=== PATIENT | female | born 1990 | race Caucasian/White ===

== ENCOUNTER 2022-07-19 23:38 | Emergency (ER) | payer MEDICARE ==
[~2022-07-19] VITALS: Ht 170.2 cm; Wt 61.8 kg
[2022-07-19 23:53] VITALS: BP 128/82
[2022-07-20] MEDS ORDERED: IBUP-2029 MT (01:05)
[2022-07-20] MEDS ORDERED: TRAM50TA3 MT (01:05)
== END 2022-07-20 01:31 | disposition home or self-care (01) ==
LOC: ER 23:38
DX: S23.41XA Sprain of ribs, initial encounter (principal); S29.011A Strain of muscle and tendon of front wall of thorax, initial encounter; V43.62XA Car passenger injured in collision with other type car in traffic accident, initial encounter; Y93.9 Activity, unspecified; Y92.410 Unspecified street and highway as the place of occurrence of the external cause
CPT/HCPCS: 99281